=== PATIENT | female | born 1985 | race Caucasian/White ===

== ENCOUNTER 2018-06-17 03:52 | Emergency (ER) | payer SELFPAY ==
[~2018-06-17] VITALS: Ht 165.1 cm; Wt 90.7 kg
[2018-06-17 03:52] VITALS: BP 137/78
[2018-06-17 05:09] VITALS: BP 137/78
== END 2018-06-17 05:18 ==
LOC: MED 03:52
DX: M25.562 Pain in left knee (principal); M54.5 Low back pain; Z02.89 Encounter for other administrative examinations; Z88.2 Allergy status to sulfonamides
CPT/HCPCS: 72110; 73562; 81025; 99283